=== PATIENT | male | born 1995 | race Hispanic/Latino ===

== ENCOUNTER → 2022-03-05 | Day surgery (SDC) | payer OTHER ==
[~2022-03-05] MED LIST: BUPIVACAINE 0.25% 30ML SDV ONE; DEXAMETHASONE SOD PHOS INJ 4 MG/ML SDV ONE; EPHEDRINE SULFATE INJ 50 MG/ML VIAL ONE; FENTANYL CITRATE/PF 100MCG/2 ML INJ ONE; HYDROCODONE/APAP 7.5MG-325MG 1 EA TAB ONE; KETOROLAC TROMETHAMINE 30 MG/ML VIAL ONE; MEPERIDINE HCL INJ 25 MG/ML VIAL ONE; MIDAZOLAM HCL 2 MG/2 ML VIAL ONE; ONDANSETRON HCL INJ 2MG/ML 2ML 2 MG/ML VIAL ONE; POVIDONE IODINE 0.05% 0.05 % ML PO ONE; PROPOFOL IV EMULSION 10 MG/ML 20 ML VIAL ONE; ROPIVACAINE 0.5% 5 MG/ML 30 ML SDV ONE; SEVOFLURANE INHAL SOLN 250 ML PEN BTL ONE
[2022-03-05 14:04] VITALS: BP 145/80
== END | disposition home or self-care (01) ==
LOC: OR 09:45
PROVIDERS: ATTEND Specialist
DX: S86.011A Strain of right Achilles tendon, initial encounter (principal); E66.9 Obesity, unspecified; F41.9 Anxiety disorder, unspecified; X58.XXXA Exposure to other specified factors, initial encounter; Y93.67 Activity, basketball; Y99.8 Other external cause status; Z01.812 Encounter for preprocedural laboratory examination; Z20.822 Contact with and (suspected) exposure to COVID-19; Z68.30 Body mass index [BMI] 30.0-30.9, adult
CPT/HCPCS: 0223U; 27650; 36415; J0690; J1100; J1885; J2175; J2250; J2405; J2704; J2795; J3010